=== PATIENT | male | born 1990 | race Caucasian/White ===

== ENCOUNTER 2018-05-22 17:00 | Emergency (ER) | payer OTHER ==
[2018-05-22] MEDS ORDERED: NA CHLORIDE 0.9% 1,000 ML ONE (17:20)
[2018-05-22 17:39] LABS: Absolute Lymphocytes (CBC) 0.6 K/uL (0.7-4.9); Absolute Monocytes 0.7 K/uL (0.1-1.3); Absolute Neutrophil 11.2 K/uL (1.8-8.0); Basophils % 0.2 % (0-1.3); Eosinophils % 0.4 % (0-4.4); Hematocrit 45.1 % (39.6-49.0); Lymphocytes % 4.5 % (15.3-44.8); MCH 32.6 pg (27.0-35.0); MCV 94.3 fL (80-100); MPV 7.4 fL (7.6-11.3); Monocytes % 5.6 % (3.3-12.3); RBC Red Blood Cell Count 4.78 M/uL (4.33-5.43)
[2018-05-22 17:54] LABS: Albumin 4.3 g/dL (3.4-5.0); Bilirubin Direct 0.1 mg/dL (0-0.2); Bilirubin Total 0.5 mg/dL (0.2-1.0); Potassium 3.7 mmol/L (3.5-5.1); Protein, Total 7.8 g/dL (6.4-8.2)
[2018-05-22 18:38] LABS: Urine White Blood Cell Casts OK
[2018-05-22 18:39] LABS: Blood Morphology Comment NOT SEEN (NOT SEEN); Platelet Estimate ADEQ
--- NOTE | 2018-05-22 18:43 | RAD REPORT ---
EXAM DESCRIPTION: CT - Abdomen Pelvis W Contrast - 05/22/2018 6:34 pm CLINICAL HISTORY: Abdominal pain, diarrhea, pain primarily right side COMPARISON: None. TECHNIQUE: Biphasic, helical CT imaging of the abdomen and pelvis was performed following 100 ml non -ionic IV contrast. Oral contrast was given. All CT scans are performed using dose optimization technique as appropriate and may include automated exposure control or mA/KV adjustment according to patient size. FINDINGS: No suspicious findings in the lung bases. The liver, spleen, and pancreas show no suspicious findings. Gallbladder and biliary tree are also wi thout suspicious finding. Symmetric renal function is seen with no hydronephrosis or suspicious renal mass. No dilated bowel loops or bowel wall thickening. No acute appendicitis findings. There is an appendic olith or old contrast within the lumen of a normal-sized appendix. No active GI process seen. No free air, free fluid or inflammatory stranding. No mass or bulky lymphadenopathy. A minimal fat filled u mbilical hernia is present. The urinary bladder is without significant finding. No adrenal abnormalit y. Prostate gland and seminal vesicles are normal. No suspicious bony findings. IMPRESSION: Contrast enhanced CT abdomen and pelvis showing no significant or suspicious finding.
--- NOTE | 2018-05-22 19:23 | ER ---
Nurse's Notes [facility] Name: King Vallejo Age: 28 yrs Sex: Male : 1990 Arrival Date: 05/22/2018 Time: 17:01 Bed 24 Private MD: Diagnosis: Diarrhea, unspecified;Unspecified abdominal pain;Viral gastroenteritis Presentation: 05/22 17:04 Presenting complaint: EMS states: pt sent from urgent care for complaint of feeling ill tl3 with dizziness and diarrhea. Flu and strep negative at urgent care, right sided abdominal pain with palpation. Transition of care: urgent care. Onset of symptoms was May 19, 2018. Risk Assessment: Do you want to hurt yourself or someone else? Patient reports no desire to harm self or others. Initial Sepsis Screen: Does the patient meet any 2 criteria? No. Patient's initial sepsis screen is negative. Does the patient have a suspected source of infection? No. Patient's initial sepsis screen is negative. Care prior to arrival: None. 17:04 Method Of Arrival: EMS: [facility] tl3 17:04 Acuity: CASIE 3 tl3 Triage Assessment: 17:07 General: Appears uncomfortable, slender, well groomed, well developed, well nourished, tl3 Behavior is calm, cooperative, appropriate for age. Pain: Complains of pain in right upper quadrant and right lower quadrant. EENT: No signs and/or symptoms were reported regarding the EENT system. Neuro: Level of Consciousness is awake, alert, obeys commands. Cardiovascular: Patient's skin is warm and dry. Respiratory: Airway is patent Respiratory effort is even, unlabored, Respiratory pattern is regular, symmetrical. GI: Abdomen is round Bowel sounds hyperactive in right upper quadrant and right lower quadrant Abdomen is tender to palpation in right upper quadrant and right lower quadrant. : No signs and/or symptoms were reported regarding the genitourinary system. Derm: No signs and/or symptoms reported regarding the dermatologic system. Musculoskeletal: No signs and/or symptoms reported regarding the musculoskeletal system. Historical: - Allergies: 17:07 No Known Allergies; tl3 - Home Meds: 17:07 None [Active]; tl3 - PMHx: 17:07 None; tl3 - PSHx: 17:07 None; tl3 - Immunization history:: Adult Immunizations up to date. - Social history:: Smoking status: unknown. - Ebola Screening: : No symptoms or risks identified at this time. Screenin:11 Abuse screen: Denies threats or abuse. Nutritional screening: No deficits noted. tl3 Tuberculosis screening: No symptoms or risk factors identified. Fall Risk None identified. Assessment: 17:11 Reassessment: No changes from previously documented assessment. tl3 18:24 Reassessment: Patient appears in no apparent distress at this time. No changes from tl3 previously documented assessment. Patient and/or family updated on plan of care and expected duration. Pain level reassessed. Patient is alert, oriented x 3, equal unlabored respirations, skin warm/dry/pink. pt being transported to CT. Vital Signs: 17:01 BP 132 / 93; Pulse 104; Resp 16; Temp 98.9(O); Pulse Ox 98% on R/A; iw 17:07 BP 131 / 84 Supine; Pulse 86; tl3 17:07 BP 129 / 90 Sitting; Pulse 109; tl3 17:07 BP 118 / 88 Standing; Pulse 115; tl3 18:24 BP 126 / 80; Pulse 98; Resp 18; Pulse Ox 100% on R/A; tl3 ED Course: 17:01 Patient arrived in ED. dm5 17:03 Reuben Ponce NP is PHCP. pm1 17:03 Virgil Velazco MD is Attending Physician. pm1 17:04 Elena Thomas, YASSINE is Primary Nurse. tl3 17:07 Triage completed. tl3 17:07 Arm band placed on right wrist. tl3 17:11 Patient has correct armband on for positive identification. Bed in low position. Call tl3 light in reach. Side rails up X 1. Pulse ox on. NIBP on. 17:11 No provider procedures requiring assistance completed. tl3 17:13 Flu and/or RSV swab sent to lab. Strep swab sent to lab. tm3 17:24 Initial lab(s) drawn, by me, sent to lab. Inserted saline lock: 20 gauge in right tl3 antecubital area, using aseptic technique. Blood collected. 18:[address] vm2 18:35 CT Abd/Pelvis - W/Contrast: IV contrast only In Process Unspecified. EDMS 18:37 CT completed. Patient tolerated procedure well. Patient moved back from CT. vm2 Administered Medications: 17:23 Drug: NS 0.9% 1000 ml Route: IV; Rate: 1000 ml; Site: right antecubital; Delivery: tl3 Primary tubing; 18:25 Follow up: IV Status: Completed infusion; IV Intake: 1000ml tl3 Intake: 18:25 IV: 1000ml; Total: 1000ml. tl3 Outcome: 19:23 Discharge ordered by . pm1 19:54 Patient left the ED. tl3 Signatures: Dispatcher [employer] EDMS Elver Andino tm3 May Rebolledo, YASSINE RN dm5 Dilma Arrieta RN RN iw Reuben Ponce, VAULT MAKER VAULT MAKER pm1 Heydi Aguilar 2 Elena Thomas RN RN tl3
--- NOTE | 2018-05-22 19:23 | EDPHYS ---
Physician Documentation [facility] Name: King Vallejo Age: 28 yrs Sex: Male : 1990 Arrival Date: 05/22/2018 Time: 17:01 Bed 24 Private MD: ED Physician Virgil Velazco HPI: 05/22 18:00 This 28 yrs old Male presents to ER via EMS with complaints of Abdominal Pain.pm1 18:00 The patient presents with abdominal pain in the epigastric area. Onset: The pm1 symptoms/episode began/occurred 3 day(s) ago. The symptoms do not radiate. Associated signs and symptoms: Pertinent positives: diarrhea, Pertinent negatives: nausea and vomiting, chest pain, dysuria, fever, shortness of breath. The symptoms are described as crampy. Modifying factors: The symptoms are alleviated by nothing, the symptoms are aggravated by nothing. Severity of pain: in the emergency department the pain has resolved. The patient has not recently seen a physician. Patient's roommate with diarrhea and abdominal pain for the past 3-4 days that just resolved. Patient presenting today with diarrhea 5-6 times per day for the past 3 days. Had abdominal cramping in the epigastric area that is currently resolved. Patient went to urgent care and had a flu and strep test performed. Patient was dizzy at the urgent care so EMS was asked to transfer the patient to the ER.. Historical: - Allergies: 17:07 No Known Allergies; tl3 - Home Meds: 17:07 None [Active]; tl3 - PMHx: 17:07 None; tl3 - PSHx: 17:07 None; tl3 - Immunization history:: Adult Immunizations up to date. - Social history:: Smoking status: unknown. - Ebola Screening: : No symptoms or risks identified at this time. ROS: 18:00 Constitutional: Negative for fever, chills, and weight loss, Eyes: Negative for injury, pm1 pain, redness, and discharge, ENT: Negative for injury, pain, and discharge, Neck: Negative for injury, pain, and swelling, Cardiovascular: Negative for chest pain, palpitations, and edema, Respiratory: Negative for shortness of breath, cough, wheezing, and pleuritic chest pain. 18:00 Back: Negative for injury and pain, : Negative for injury, bleeding, discharge, and swelling, MS/Extremity: Negative for injury and deformity, Skin: Negative for injury, rash, and discoloration. 18:00 Abdomen/GI: Positive for abdominal pain, diarrhea, Negative for nausea and vomiting, constipation. 18:00 Neuro: Positive for dizziness, Negative for headache, numbness, tingling, weakness. Exam: 18:00 Constitutional: This is a well developed, well nourished patient who is awake, alert, pm1 and in no acute distress. Head/Face: Normocephalic, atraumatic. Eyes: Pupils equal round and reactive to light, extra-ocular motions intact. Lids and lashes normal. Conjunctiva and sclera are non-icteric and not injected. Cornea within normal limits. Periorbital areas with no swelling, redness, or edema. ENT: Nares patent. No nasal discharge, no septal abnormalities noted. Tympanic membranes are normal and external auditory canals are clear. Oropharynx with no redness, swelling, or masses, exudates, or evidence of obstruction, uvula midline. Mucous membranes moist. Neck: Trachea midline, no thyromegaly or masses palpated, and no cervical lymphadenopathy. Supple, full range of motion without nuchal rigidity, or vertebral point tenderness. No Meningismus. Chest/axilla: Normal chest wall appearance and motion. Nontender with no deformity. No lesions are appreciated. Cardiovascular: Regular rate and rhythm with a normal S1 and S2. No gallops, murmurs, or rubs. Normal PMI, no JVD. No pulse deficits. Respiratory: Lungs have equal breath sounds bilaterally, clear to auscultation and percussion. No rales, rhonchi or wheezes noted. No increased work of breathing, no retractions or nasal flaring. 18:00 Back: No spinal tenderness. No costovertebral tenderness. Full range of motion. Skin: Warm, dry with normal turgor. Normal color with no rashes, no lesions, and no evidence of cellulitis. MS/ Extremity: Pulses equal, no cyanosis. Neurovascular intact. Full, normal range of motion. 18:00 Abdomen/GI: Inspection: abdomen appears normal, Bowel sounds: normal, Palpation: abdomen is soft and non-tender, in all quadrants, mass, is not appreciated, rebound tenderness, is not appreciated, Indicators: McBurney's point is not tender, Hull's sign is negative, Rovsing's sign is negative, Obturator sign is negative, Psoas sign is negative. 18:00 Neuro: Orientation: is normal, Motor: is normal, moves all fours, Gait: is steady, at a normal pace, without difficulty. Vital Signs: 17:01 BP 132 / 93; Pulse 104; Resp 16; Temp 98.9(O); Pulse Ox 98% on R/A; iw 17:07 BP 131 / 84 Supine; Pulse 86; tl3 17:07 BP 129 / 90 Sitting; Pulse 109; tl3 17:07 BP 118 / 88 Standing; Pulse 115; tl3 18:24 BP 126 / 80; Pulse 98; Resp 18; Pulse Ox 100% on R/A; tl3 MDM: 17:03 Patient medically screened. pm1 19:20 Differential diagnosis: appendicitis, cholecystitis, Cholelithiasis, gastritis, pm1 Hepatitis, non-specific abd pain, pancreatitis, Viral gastroenteritis. 19:22 Data reviewed: vital signs. Data interpreted: Pulse oximetry: on room air is 100 %. pm1 Interpretation: normal. Counseling: I had a detailed discussion with the patient and/or guardian regarding: the historical points, exam findings, and any diagnostic results supporting the discharge/admit diagnosis, lab results, radiology results, the need for outpatient follow up, to return to the emergency department if symptoms worsen or persist or if there are any questions or concerns that arise at home. 05/22 17:10 Order name: Strep; Complete Time: 18:10 pm1 05/22 17:10 Order name: Flu; Complete Time: 18:10 pm1 05/22 17:10 Order name: Basic Metabolic Panel; Complete Time: 18:10 pm1 05/22 17:10 Order name: CBC with Diff; Complete Time: 18:44 pm1 05/22 17:10 Order name: Creatinine for Radiology; Complete Time: 18:10 pm1 05/22 17:10 Order name: Hepatic Function; Complete Time: 18:10 pm1 05/22 17:10 Order name: Lipase; Complete Time: 18:10 pm1 05/22 17:10 Order name: IV Saline Lock; Complete Time: 17:23 pm1 05/22 17:10 Order name: Labs collected and sent; Complete Time: 17:24 pm1 10/23 17:10 Order name: Orthostatic Blood Pressure; Complete Time: 17:12 pm1 05/22 17:51 Order name: Throat Culture EDMS 05/22 18:12 Order name: CT Abd/Pelvis - W/Contrast: IV contrast only; Complete Time: 18:44 pm1 05/22 18:38 Order name: CBC Smear Scan; Complete Time: 18:44 EDMS Administered Medications: 17:23 Drug: NS 0.9% 1000 ml Route: IV; Rate: 1000 ml; Site: right antecubital; Delivery: tl3 Primary tubing; 18:25 Follow up: IV Status: Completed infusion; IV Intake: 1000ml tl3 Disposition: 05/22/18 19:23 Discharged to Home. Impression: Diarrhea, unspecified, Unspecified abdominal pain, Viral gastroenteritis . - Condition is Stable. - Discharge Instructions: Abdominal Pain, Adult, Food Choices to Help Relieve Diarrhea, Adult, Diarrhea, Adult, Viral Gastroenteritis, Adult. - Prescriptions for Bentyl 20 mg Oral Tablet - take 1 tablet by ORAL route every 6 hours As needed; 20 tablet. - Medication Reconciliation Form, Thank You Letter, Antibiotic Education, Work release form form. - Follow up: Emergency Department; When: As needed; Reason: Worsening of condition. Follow up: Private Physician; When: 2 - 3 days; Reason: Recheck today's complaints, Continuance of care, Re-evaluation by your physician. - Problem is new. - Symptoms have improved. Addendum: 05/24/2018 02:03 Co-signature as Attending Physician, Virgil Velazco MD Available for consultation at p s1 all times. . Signatures: Dispatcher [employer] EDHI Reuben Ponce, NOODLE MAKER NOODLE MAKER pm1 Virgil Velazco MD MD ps1 Elena Thomas RN RN tl3 Corrections: (The following items were deleted from the chart) 05/22 19:54 19:23 05/22/2018 19:23 Discharged to Home. Impression: Diarrhea, unspecified; tl3 Unspecified abdominal pain; Viral gastroenteritis . Condition is Stable. Forms are Medication Reconciliation Form, Thank You Letter, Antibiotic Education, Prescription Opioid Use. Follow up: Emergency Department; When: As needed; Reason: Worsening of condition. Follow up: Private Physician; When: 2 - 3 days; Reason: Recheck today's complaints, Continuance of care, Re-evaluation by your physician. Problem is new. Symptoms have improved. pm1
== END 2018-05-22 19:54 | disposition home or self-care (01) ==
LOC: ER 17:00
DX: A08.4 Viral intestinal infection, unspecified (principal); R19.7 Diarrhea, unspecified
CPT/HCPCS: 36415; 74177; 80048; 80076; 83690; 85025; 87070; 87081; 87804; J7030; Q9967

== ENCOUNTER 2019-09-25 04:43 | Observation (INO) | payer OTHER ==
--- OUTSIDE RECORDS SUMMARY | 2019-09-25 04:45 | XMS REPORT ---
:1990 [facility] Address [address] [place] [address] Dr. Ling [address] [place] [id number] Care Team Providers Name Role Phone Unavailable Unavailable Unavailable Problems This patient has no known problems. Allergies, Adverse Reactions, Alerts This patient has no known allergies or adverse reactions. Medications This patient has no known medications.
[2019-09-25] MEDS ORDERED: NA CHLORIDE 0.9% 500 ML ONE (05:43)
[2019-09-25] MEDS ORDERED: ONDANSETRON 4 MG/2 ML VIAL ONE ×4 (05:43→13:36)
[2019-09-25] MEDS ORDERED: MORPHINE 4 MG/ML SYR ONE ×2 (05:43→07:56)
[2019-09-25 05:53] LABS: Absolute Lymphocytes (CBC) 0.9 K/uL (0.7-4.9); Basophils % 0.2 % (0-1.3); Hematocrit 44.1 % (39.6-49.0); Lymphocytes % 5.8 % (15.3-44.8); MPV 8.1 fL (7.6-11.3); RBC Red Blood Cell Count 4.71 M/uL (4.33-5.43)
[2019-09-25 06:13] LABS: Albumin 4.1 g/dL (3.4-5.0); Bilirubin Direct 0.2 mg/dL (0-0.2); Bilirubin Total 0.5 mg/dL (0.2-1.0); Potassium 3.9 mmol/L (3.5-5.1); Protein, Total 7.5 g/dL (6.4-8.2)
--- NOTE | 2019-09-25 06:50 | EDPHYS ---
Physician Documentation [facility] Name: King Vallejo Age: 29 yrs Sex: Male : 1990 Arrival Date: 09/25/2019 Time: 04:44 Bed 8 Private MD: ED Physician Jose Givens HPI: 09/25 05:16 This 29 yrs old Male presents to ER via Ambulatory with complaints of abd rn pain. 05:16 The patient presents with abdominal pain right lower quadrant. Onset: The rn symptoms/episode began/occurred last night. The symptoms do not radiate. Associated signs and symptoms: Pertinent positives: nausea and vomiting, anorexia, diarrhea, Pertinent negatives: fever, hematuria, testicular pain. Modifying factors: The symptoms are alleviated by nothing, the symptoms are aggravated by pressure, touching the area. Severity of pain: At its worst the pain was moderate in the emergency department the pain is unchanged. The patient has not experienced similar symptoms in the past. The patient has not recently seen a physician. 05:16 The symptoms are described as sharp, stabbing. rn Historical: - Allergies: 04:57 No Known Allergies; fc - Home Meds: 04:57 None [Active]; fc - PMHx: 04:57 None; fc - PSHx: 04:57 None; fc - Immunization history:: Last tetanus immunization: up to date Flu vaccine is not up to date. - Coronavirus screen:: The patient has NOT traveled to [place] in the past 14 days. Proceed with normal triage process as indicated. The patient has NOT had contact with known/suspected case of Coronavirus? Proceed with normal triage procedures. - Social history:: Smoking status: Patient denies any tobacco usage or history of. Patient uses alcohol, occasionally. Patient/guardian denies using street drugs. - Family history:: not pertinent. - Ebola Screening: : Patient negative for fever greater than or equal to 101.5 degrees Fahrenheit, and additional compatible Ebola Virus Disease symptoms Patient denies exposure to infectious person Patient denies travel to an Ebola-affected area in the 21 days before illness onset. - Hospitalizations: : No recent hospitalization is reported. ROS: 05:17 Constitutional: Negative for fever, chills, and weight loss, Eyes: Negative for injury, rn pain, redness, and discharge, Neck: Negative for injury, pain, and swelling, Cardiovascular: Negative for chest pain, palpitations, and edema, Respiratory: Negative for shortness of breath, cough, wheezing, and pleuritic chest pain, Abdomen/GI: + abd pain with nausea/vomiting/diarrhea Back: Negative for injury and pain, : Negative for injury, bleeding, discharge, and swelling, MS/Extremity: Negative for injury and deformity, Skin: Negative for injury, rash, and discoloration, Neuro: Negative for headache, weakness, numbness, tingling, and seizure. Exam: 05:17 Constitutional: This is a well developed, well nourished patient who is awake, alert, rn appears uncomfortable, walking to room holding right lower abdomen. Head/Face: Normocephalic, atraumatic. Eyes: Pupils equal round and reactive to light, extra-ocular motions intact. Lids and lashes normal. Conjunctiva and sclera are non-icteric and not injected. Cornea within normal limits. Periorbital areas with no swelling, redness, or edema. ENT: MMM Cardiovascular: Regular rate and rhythm. No pulse deficits. Respiratory: No increased work of breathing, no retractions or nasal flaring. Abdomen/GI: soft, + RLQ tenderness with guarding, no rebound Skin: Warm, dry with normal turgor. Normal color with no rashes, no lesions, and no evidence of cellulitis. MS/ Extremity: Pulses equal, no cyanosis. Neurovascular intact. Full, normal range of motion. Equal circumference. Neuro: Awake and alert, GCS 15, oriented to person, place, time, and situation. Cranial nerves II-XII grossly intact. Motor strength 5/5 in all extremities. Sensory grossly intact. Cerebellar exam normal. Normal gait. Vital Signs: 04:45 BP 135 / 76; Pulse 85; Resp 18; Temp 97.9(O); Pulse Ox 99% on R/A; Weight 109.77 kg fc (R); Height 6 ft. 0 in. (182.88 cm) (R); Pain 8/10; 06:15 BP 132 / 71; Pulse 88; Resp 16; Pulse Ox 98% on R/A; Pain 5/10; jb4 07:00 BP 120 / 76; Pulse 89; Resp 16; Pulse Ox 99% on R/A; Pain 7/10; jb4 08:00 BP 122 / 78; Pulse 78; Resp 18; Pulse Ox 96% ; Pain 8/10; ll1 09:50 BP 121 / 85; Pulse 73; Resp 15; Temp 98.1; Pulse Ox 100% on R/A; hb 04:45 Body Mass Index 32.82 (109.77 kg, 182.88 cm) fc MDM: 04:45 Patient medically screened. rn 06:42 Differential diagnosis: appendicitis, diverticulitis, gastritis, non-specific abd pain, rn pancreatitis, Ureterolithiasis. Data reviewed: vital signs, nurses notes, lab test result(s), radiologic studies, CT scan, and as a result, I will admit patient. Counseling: I had a detailed discussion with the patient and/or guardian regarding: the historical points, exam findings, and any diagnostic results supporting the discharge/admit diagnosis, lab results, radiology results, the need for further work-up and treatment in the hospital. Admission orders: after a detailed discussion of the patient's condition and case, the admit orders are written by me. Special discussion:. ED course: Pt with acute appendicitis, no perforation, no abscess, will admit for surgery.. 06:47 ED course: called Dr. Herzog twice, no answer, will admit to [facility] as he is on rn call in a few minutes. . 09/25 05:01 Order name: Basic Metabolic Panel; Complete Time: 06:17 rn 09/25 05:01 Order name: CBC with Diff rn 09/25 05:01 Order name: Creatinine for Radiology; Complete Time: 06:23 rn 09/25 05:01 Order name: Hepatic Function; Complete Time: 06:17 rn 09/25 05:01 Order name: Lipase; Complete Time: 06:17 rn 09/25 06:54 Order name: Manual Differential EDMS 09/25 05:07 Order name: CT Abd/Pelvis - IV Contrast Only rn 09/25 05:01 Order name: IV Saline Lock; Complete Time: 05:54 rn 09/25 05:01 Order name: Labs collected and sent; Complete Time: 05:54 rn 09/25 06:49 Order name: NPO; Complete Time: 06:51 rn Administered Medications: 05:40 Drug: NS 0.9% 500 ml Route: IV; Rate: bolus; Site: right antecubital; sg 06:20 Follow up: Response: No adverse reaction; IV Status: Completed infusion; IV Intake: jb4 500ml 05:50 Drug: Zofran 4 mg Route: IVP; Site: right antecubital; sg 06:15 Follow up: Response: No adverse reaction; Nausea is decreased jb4 05:52 Drug: morphine 4 mg Route: IVP; Site: right antecubital; sg 06:15 Follow up: Response: No adverse reaction; Pain is decreased; RASS: Alert and Calm (0) jb4 07:06 Drug: Rocephin - (cefTRIAXone) 1 grams {Note: Administered IV push per Pharmacy jb4 protocol.} Route: IVPB; Infused Over: 30 mins; Site: right antecubital; 07:10 Follow up: Response: No adverse reaction; IV Status: Completed infusion; IV Intake: [id number] 07:10 Drug: Flagyl 500 mg Volume: 100 ml; Route: IVPB; Rate: 200 ml/hr; Infused Over: 30 jb4 mins; Site: right antecubital; 07:43 Follow up: Response: No adverse reaction; IV Status: Completed infusion ll1 07:58 Drug: Zofran 4 mg Route: IVP; Site: right antecubital; ll1 08:00 Drug: morphine 4 mg Route: IVP; Site: right antecubital; ll1 Disposition: 09/25/19 06:49 Hospitalization ordered by Krishna [facility] for Inpatient Admission. Preliminary diagnosis is Acute appendicitis. - Bed requested for Telemetry/MedSurg (Inpatient). - Status is Inpatient Admission. hb - Condition is Stable. - Problem is new. - Symptoms have improved. Signatures: Dispatcher [employer] EDPA Antonia Valdez RN RN Axle Owens RN RN Jessica Cardona RN RN fc Nieto, Roman, MD MD rn Baxter, Heather, RN RN Krishna Webber RN RN jb Raji Porras RN RN ll1 Corrections: (The following items were deleted from the chart) 09:12 06:49 Hospitalization Ordered by Krishna Hill MD for Inpatient Admission. Preliminary dw diagnosis is Acute appendicitis. Bed requested for Telemetry/MedSurg (Inpatient). Status is Inpatient Admission. Condition is Stable. Problem is new. Symptoms have improved. rn 10:05 09:12 09/25/2019 06:49 Hospitalization Ordered by Krishna Hill MD for Inpatient Admission. Preliminary diagnosis is Acute appendicitis. Bed requested for Telemetry/MedSurg (Inpatient). Status is Inpatient Admission. Condition is Stable. Problem is new. Symptoms have improved. dw
--- NOTE | 2019-09-25 06:50 | ER ---
Nurse's Notes [facility] Name: King Vallejo Age: 29 yrs Sex: Male : 1990 Arrival Date: 09/25/2019 Time: 04:44 Bed 8 Private MD: Diagnosis: Acute appendicitis Presentation: 09/25 04:45 Presenting complaint: Patient states: that he is having right lower abd pain and right fc lower back ache. Positive nausea, vomiting and diarrhea. Transition of care: patient was not received from another setting of care. Onset of symptoms was September 24, 2019 at 23:00. Risk Assessment: Do you want to hurt yourself or someone else? Patient reports no desire to harm self or others. Initial Sepsis Screen: Does the patient meet any 2 criteria? No. Patient's initial sepsis screen is negative. Does the patient have a suspected source of infection? No. Patient's initial sepsis screen is negative. Care prior to arrival: None. 04:45 Method Of Arrival: Ambulatory 04:45 Acuity: CASIE 3 fc Historical: - Allergies: 04:57 No Known Allergies; fc - Home Meds: 04:57 None [Active]; fc - PMHx: 04:57 None; fc - PSHx: 04:57 None; fc - Immunization history:: Last tetanus immunization: up to date Flu vaccine is not up to date. - Coronavirus screen:: The patient has NOT traveled to [place] in the past 14 days. Proceed with normal triage process as indicated. The patient has NOT had contact with known/suspected case of Coronavirus? Proceed with normal triage procedures. - Social history:: Smoking status: Patient denies any tobacco usage or history of. Patient uses alcohol, occasionally. Patient/guardian denies using street drugs. - Family history:: not pertinent. - Ebola Screening: : Patient negative for fever greater than or equal to 101.5 degrees Fahrenheit, and additional compatible Ebola Virus Disease symptoms Patient denies exposure to infectious person Patient denies travel to an Ebola-affected area in the 21 days before illness onset. - Hospitalizations: : No recent hospitalization is reported. Screenin:45 Abuse screen: Denies threats or abuse. Nutritional screening: No deficits noted. fc Tuberculosis screening: No symptoms or risk factors identified. Fall Risk None identified. Assessment: 04:50 General: Appears in no apparent distress. uncomfortable, Behavior is calm, cooperative, jb4 appropriate for age. Pain: Complains of pain in abdomen Pain does not radiate. Pain at worst was 10 out of 10 on a pain scale. Quality of pain is described as burning, Is continuous. Neuro: Level of Consciousness is awake, alert, obeys commands, Oriented to person, place, time, situation. Cardiovascular: Patient's skin is warm and dry. Respiratory: Airway is patent Respiratory effort is even, unlabored, Respiratory pattern is regular, symmetrical. GI: Abdomen is flat, non-distended, Reports lower abdominal pain, upper abdominal pain. : No signs and/or symptoms were reported regarding the genitourinary system. EENT: No signs and/or symptoms were reported regarding the EENT system. Derm: Skin is intact, Skin is pink, warm \T\ dry. Musculoskeletal: Circulation, motion, and sensation intact. Range of motion: intact in all extremities. 05:40 Reassessment: Patient appears in no apparent distress at this time. Patient and/or family updated on plan of care and expected duration. Pain level reassessed. Patient is alert, oriented x 3, equal unlabored respirations, skin warm/dry/pink. pt awaiting CT scan, pt to provide a urine specimen, IV fluids have been initiated as ordered, pt medicated for pain and nausea, will continue to monitor. 06:45 Reassessment: Patient appears in no apparent distress at this time. Patient and/or jb4 family updated on plan of care and expected duration. Pain level reassessed. Patient is alert, oriented x 3, equal unlabored respirations, skin warm/dry/pink. 07:55 Reassessment: Patient and/or family updated on plan of care and expected duration. Pain ll1 level reassessed. Patient is alert, oriented x 3, equal unlabored respirations, skin warm/dry/pink. Flagyl completed, IV SL. Gait steady to restroom. Patient states feeling better. 08:35 Reassessment: Patient appears in no apparent distress at this time. Patient and/or family updated on plan of care and expected duration. Pain level reassessed. Patient is alert, oriented x 3, equal unlabored respirations, skin warm/dry/pink. 09:18 Reassessment: Attempted to call report, per YESSENIA Hope RN, receiving nurse unavailable at this time. 10:03 Reassessment: Bedside report to RACHEL RN, pt to OR. Report called to 2nd floor receiving nurse Natacha METZGER. Vital Signs: 04:45 BP 135 / 76; Pulse 85; Resp 18; Temp 97.9(O); Pulse Ox 99% on R/A; Weight 109.77 kg fc (R); Height 6 ft. 0 in. (182.88 cm) (R); Pain 8/10; 06:15 BP 132 / 71; Pulse 88; Resp 16; Pulse Ox 98% on R/A; Pain 5/10; jb4 07:00 BP 120 / 76; Pulse 89; Resp 16; Pulse Ox 99% on R/A; Pain 7/10; jb4 08:00 BP 122 / 78; Pulse 78; Resp 18; Pulse Ox 96% ; Pain 8/10; ll1 09:50 BP 121 / 85; Pulse 73; Resp 15; Temp 98.1; Pulse Ox 100% on R/A; hb 04:45 Body Mass Index 32.82 (109.77 kg, 182.88 cm) ED Course: 04:44 Patient arrived in ED. ds1 04:45 Jose Givens MD is Attending Physician. rn 04:45 Arm band placed on Patient placed in an exam room, on a stretcher. 04:45 Patient has correct armband on for positive identification. Bed in low position. Call light in reach. Pulse ox on. NIBP on. 04:45 No provider procedures requiring assistance completed. fc 04:54 Triage completed. 05:35 Krishna Webber, RN is Primary Nurse. jb4 06:26 CT Abd/Pelvis - IV Contrast Only In Process Unspecified. EDMS 06:48 Krishna Hill MD is Hospitalizing Provider. rn 10:04 Patient admitted, IV remains in place. Administered Medications: 05:40 Drug: NS 0.9% 500 ml Route: IV; Rate: bolus; Site: right antecubital; sg 06:20 Follow up: Response: No adverse reaction; IV Status: Completed infusion; IV Intake: jb4 500ml 05:50 Drug: Zofran 4 mg Route: IVP; Site: right antecubital; sg 06:15 Follow up: Response: No adverse reaction; Nausea is decreased jb4 05:52 Drug: morphine 4 mg Route: IVP; Site: right antecubital; sg 06:15 Follow up: Response: No adverse reaction; Pain is decreased; RASS: Alert and Calm (0) jb4 07:06 Drug: Rocephin - (cefTRIAXone) 1 grams {Note: Administered IV push per Pharmacy jb4 protocol.} Route: IVPB; Infused Over: 30 mins; Site: right antecubital; 07:10 Follow up: Response: No adverse reaction; IV Status: Completed infusion; IV Intake: [id number] 07:10 Drug: Flagyl 500 mg Volume: 100 ml; Route: IVPB; Rate: 200 ml/hr; Infused Over: 30 jb4 mins; Site: right antecubital; 07:43 Follow up: Response: No adverse reaction; IV Status: Completed infusion ll1 07:58 Drug: Zofran 4 mg Route: IVP; Site: right antecubital; ll1 08:00 Drug: morphine 4 mg Route: IVP; Site: right antecubital; ll1 Intake: 06:20 IV: 500ml; Total: 500ml. jb4 07:10 IV: 10ml; Total: 510ml. jb4 Outcome: 06:49 Decision to Hospitalize by Provider. rn 10:04 Admitted to Med/surg accompanied by nurse, via stretcher. 10:04 Condition: stable 10:04 Instructed on the need for admit, Demonstrated understanding of instructions. 10:05 Patient left the ED. Signatures: Dispatcher [employer] EDMS Axel Owens RN RN sg Chretien, Felicia, RN RN Raven Juarez ds1 Jose Givens MD MD rn Baxter, Heather, RN RN hb Bryson, James, RN RN jb4 Raji Porras RN RN ll1
[2019-09-25 06:53] LABS: Blood Morphology Comment NOT SEEN (NOT SEEN); Platelet Estimate ADEQ
[2019-09-25] MEDS ORDERED: CEFTRIAXONE/SWI 1gm 1 GM/10 ML SYR ONE (07:04)
[2019-09-25] MEDS ORDERED: METRONIDAZOLE 500mg IVPB 500 MG/100 ML BAG IV ONE (07:05)
[2019-09-25] MEDS ORDERED: Ringers Lactate 1,000 ML IV ONE ×2 (10:19→12:36)
[2019-09-25] MEDS ORDERED: FENTANYL CITR 100 MCG/2 ML ONE (10:22)
--- NOTE | 2019-09-25 10:28 | RAD REPORT ---
EXAM DESCRIPTION: CT - Abdomen Pelvis W Contrast - 09/25/2019 6:50 am ADDENDUM #1 THIS REPORT CONTAINS FINDINGS THAT MAY BE CRITICAL TO PATIENT CARE: The findings were verbally discussed via telephone conference with Dr. Jose Givens by Dr. Joselin Akins on 09/25 6:41 AM STERILE INSTRUMENT TECHNICIAN .The results were acknowledged and understood. Electronically signed by: Dianne Akins MD 09/25/2019 6:42 AM STERILE INSTRUMENT TECHNICIAN End of Addendum EXAM DESCRIPTION: CT Abdomen and Pelvis With Intravenous Contrast CLINICAL HISTORY: The patient is 29 years old and is Male; RLQ abd pain, rule out appy TECHNIQUE: Axial computed tomography images of the abdomen and pelvis with intravenous contrast. S agittal and coronal reformatted images were created and reviewed. This CT exam was performed using one or more of the following dose reduction techniques: automated exposure control, adjustment of t he mA and/or kV according to patient size, and/or use of iterative reconstruction technique. COMPARISON: No relevant prior studies available. FINDINGS: LUNG BASES: Unremarkable. No mass. No consolidation. ABDOMEN: LIVER: Unremarkable. No mass. GALLBLADDER AND BILE DUCTS: The gallbladder is physiologically distended. PANCREAS: No ductal dilation. No mass. SPLEEN: Unremarkable. ADRENALS: Unremarkable. No mass. KIDNEYS AND URETERS: A right intrarenal calcification is present. The kidneys enhance symmetrica lly. No obstructing renal or ureteral calculus is seen. STOMACH AND BOWEL: The stomach is decompressed. The small bowel is normal in caliber. A moderate amount stool is present throughout colon. There is no mucosal thickening or evidence of bowel obstru ction. PELVIS: APPENDIX: The appendix is dilated measuring up to 1.4 cm. The appendix is fluid-filled. Mild enh ancement of the appendiceal wall is noted. Surrounding inflammatory stranding is present. BLADDER: Unremarkable. No mass. REPRODUCTIVE: Unremarkable as visualized. ABDOMEN and PELVIS: INTRAPERITONEAL SPACE: Unremarkable. No free air. No significant fluid collection. BONES/JOINTS: No acute fracture. SOFT TISSUES: The soft tissues are normal. VASCULATURE: Unremarkable. No abdominal aortic aneurysm. LYMPH NODES: Unremarkable. No enlarged lymph nodes. IMPRESSION: Findings consistent with acute appendicitis. No evidence of periappendiceal abscess. Electronically signed by: Dianne Akins MD 09/25/2019 6:38 AM STERILE INSTRUMENT TECHNICIAN ADDENDUM #1 THIS REPORT CONTAINS FINDINGS THAT MAY BE CRITICAL TO PATIENT CARE: The findings were verbally discussed via telephone conference with Dr. Jose Givens by Dr. Joselin Akins on 09/25 6:41 AM STERILE INSTRUMENT TECHNICIAN .The results were acknowledged and understood. Electronically signed by: Dianne Akins MD 09/25/2019 6:42 AM STERILE INSTRUMENT TECHNICIAN End of Addendum ADDENDUM #1 THIS REPORT CONTAINS FINDINGS THAT MAY BE CRITICAL TO PATIENT CARE: The findings were verbally discussed via telephone conference with Dr. Jose Givens by Dr. Joselin Akins on 09/25 6:41 AM STERILE INSTRUMENT TECHNICIAN .The results were acknowledged and understood. Electronically signed by: Dianne Akins MD 09/25/2019 6:42 AM STERILE INSTRUMENT TECHNICIAN End of Addendum EXAM: CT Abdomen and Pelvis With Intravenous Contrast CLINICAL HISTORY: The patient is 29 years old and is Male; RLQ abd pain, rule out appy TECHNIQUE: Axial computed tomography images of the abdomen and pelvis with intravenous contrast. S agittal and coronal reformatted images were created and reviewed. This CT exam was performed using one or more of the following dose reduction techniques: automated exposure control, adjustment of t he mA and/or kV according to patient size, and/or use of iterative reconstruction technique. COMPARISON: No relevant prior studies available. FINDINGS: LUNG BASES: Unremarkable. No mass. No consolidation. ABDOMEN: LIVER: Unremarkable. No mass. GALLBLADDER AND BILE DUCTS: The gallbladder is physiologically distended. PANCREAS: No ductal dilation. No mass. SPLEEN: Unremarkable. ADRENALS: Unremarkable. No mass. KIDNEYS AND URETERS: A right intrarenal calcification is present. The kidneys enhance symmetrica lly. No obstructing renal or ureteral calculus is seen. STOMACH AND BOWEL: The stomach is decompressed. The small bowel is normal in caliber. A moderate amount stool is present throughout colon. There is no mucosal thickening or evidence of bowel obstru ction. PELVIS: APPENDIX: The appendix is dilated measuring up to 1.4 cm. The appendix is fluid-filled. Mild enh ancement of the appendiceal wall is noted. Surrounding inflammatory stranding is present. BLADDER: Unremarkable. No mass. REPRODUCTIVE: Unremarkable as visualized. ABDOMEN and PELVIS: INTRAPERITONEAL SPACE: Unremarkable. No free air. No significant fluid collection. BONES/JOINTS: No acute fracture. SOFT TISSUES: The soft tissues are normal. VASCULATURE: Unremarkable. No abdominal aortic aneurysm. LYMPH NODES: Unremarkable. No enlarged lymph nodes. IMPRESSION: Findings consistent with acute appendicitis. No evidence of periappendiceal abscess. Electronically signed by: Dianne Akins MD 09/25/2019 6:38 AM STERILE INSTRUMENT TECHNICIAN Due to temporary technical issues with the PACS/Fluency reporting system, reports are being signed by the in house radiologist as a courtesy to ensure prompt reporting. The interpreting radiologist is f ully responsible for the content of the report.
[2019-09-25] MEDS ORDERED: propofoL 200 MG/20 ML VIAL IV ONE (10:33)
[2019-09-25] MEDS ORDERED: LIDOCAINE 2% MPF 5 ML VIAL ONE (10:34)
[2019-09-25] MEDS ORDERED: MIDAZOLAM HCL 2 MG/2 ML INJ ONE (10:34)
[2019-09-25] MEDS ORDERED: FENTANYL CITR 250 MCG/5 ML ONE (10:35)
[2019-09-25] MEDS ORDERED: ROCURONIUM 50 MG/5 ML VIAL IV ONE (10:36)
[2019-09-25] MEDS ORDERED: GLYCOPYRROLATE 0.2 MG/ML SYR ONE (10:37)
--- NOTE | 2019-09-25 11:55 | P.HP ---
Date of Service: 09/25/19 PC: This 29-year-old male presents emergency room with severe right lower quadrant abdominal pain for diagnosis and treatment. HPC: Patient has had abdominal pain since 11 o'clock last night. Pain intensified and is now localized to the right lower quadrant. Hurts when he tries to walk or cough. PMH: Negative PSHx: Negative SOC: No known allergies SYS REVIEW: No cough, wheeze, shortness of breath. No chest pain or palpitations. Denies any urinary complaints O/E awake alert ill-looking young man, vital signs are stable HEENT: Not jaundiced Chest: Chest movement equal bilaterally ABD: Tenderness with guarding and rebound in the right lower quadrant LOCO: Intact DATA: CT scan demonstrates acute appendicitis IMPRESSION: This patient has an acute abdomen. Clinical exam and CT scan supports acute appendicitis PLAN: I will take him to the operating room for laparoscopic possible open appendectomy. The risks of this procedure have been discussed. The possibility of bleeding, infection, abscess formation, and injury to blood vessels and surrounding structures was explained. The possible need for an open and/or further surgeries and procedures was discussed. He understands and wants to proceed.
[2019-09-25] MEDS ORDERED: NEOSTIGMINE 1 MG/ML -5 ML ONE (12:18)
[2019-09-25] MEDS ORDERED: MORPHINE 4 MG/ML SYR IV PRN ×2 (13:12→13:26)
[2019-09-25] MEDS ORDERED: ONDANSETRON 4 MG/2 ML VIAL IV PRN (13:12)
--- NOTE | 2019-09-25 13:14 | P.OP ---
Preoperative diagnosis: Acute abdomen Postoperative diagnosis: Acute appendicitis Primary procedure: Laparoscopic appendectomy Anesthesia: General Estimated blood loss: Less than 10 cc Specimen: 1 appendix Operative Technique: The patient was brought to the operating room, placed supine on the table. After the induction of adequate general endotracheal anesthesia, the area of the abdomen was prepped with a DuraPrep solution, and she was draped in the usual aseptic manner. A subumbilical incision was made. This was brought down through the skin and subcutaneous tissue. The Visiport was cavity and created pneumoperitoneum to approximately 12 mm of mercury. Under direct vision a 5 mm trocar was placed in the lower midline and another 5 mm in the right upper quadrant. The patient was then positioned in Trendelenburg and rolled to the left side. We were able to visualize the right lower quadrant. We could see an acutely inflamed appendix laying at the sidewall of the abdomen just above the true pelvis. The appendix was grasped with a grasper and elevated. The appendix was then gently dissected from the surrounding structures. The junction of the appendix with the with the cecum was identified. An opening was made in the mesentery of the appendix. The 10 mm trocar was now converted to a 12 with the camera moved to the right upper port with a 5 mm view. The linear Stapler was introduced into the peritoneal cavity. It was placed across the base of the appendix and fired. A vascular reload was then placed into the Stapler. The mesentery of the appendix was then taken down. The appendix having been was placed into an Endo-Catch, brought out through the umbilical port site. Attention was turned back towards the right lower quadrant. The area was gently irrigated with the saline solution. The effluent was aspirated. 0.25% Marcaine was aerosolize into the right lower quadrant. Attention was turned towards the umbilical trocar. Using the endo-close absorbable sutures were placed to close the defect. The patient was now returned to the neutral position on the OR table. The pneumoperitoneum was collapsed, the umbilical sutures tied, and vangie applied to the skin. At the end of the procedure the patient was in stable condition and sent to the recovery room. Needle sponge and instrument count were correct. 1 specimen was sent for histopathology. Sterile dressings had been applied. Complications: None Transferred to: Recovery Room Condition: Good
[2019-09-25] MEDS ORDERED: HYDROCODONE/APAP 7.5/325 MG TAB PO PRN (13:26)
[2019-09-25 13:45] VITALS: O2SAT 99
[2019-09-25] MEDS: D5 0.45 NS 1,000 ML IV SCH ×2 (14:42→23:51)
[2019-09-25] MEDS: METRONIDAZOLE 500mg IVPB 500 MG/100 ML BAG IV SCH ×3 (14:43→23:52)
[2019-09-25 15:24] VITALS: BMI 32.8
[2019-09-25] MEDS: CEFTRIAXONE/SWI 1gm 1 GM/10 ML SYR IV SCH (19:57)
[2019-09-26] MEDS: D5 0.45 NS 1,000 ML IV SCH (05:12)
[2019-09-26 05:38] LABS: Absolute Lymphocytes (CBC) 1.6 K/uL (0.7-4.9); Basophils % 0.3 % (0-1.3); Hematocrit 42.2 % (39.6-49.0); Lymphocytes % 19.4 % (15.3-44.8); MPV 8.1 fL (7.6-11.3); RBC Red Blood Cell Count 4.47 M/uL (4.33-5.43)
[2019-09-26 06:04] LABS: Potassium 3.9 mmol/L (3.5-5.1)
[2019-09-26] MEDS: METRONIDAZOLE 500mg IVPB 500 MG/100 ML BAG IV SCH (08:40)
[2019-09-26] MEDS: CEFTRIAXONE/SWI 1gm 1 GM/10 ML SYR IV SCH (08:42)
[2019-09-26 13:58] VITALS: BP 124/73; TEMP 97.4
== END 2019-09-26 14:24 | disposition home or self-care (01) ==
LOC: ER 04:43 → ERHOLD 07:01 → INTOOBSV 07:01 → 2ND 11:44
PROVIDERS: ADMIT Surgery; ATTEND Surgery
PROC: 0DTJ4ZZ Resection of Appendix, Percutaneous Endoscopic Approach (ICD-10-PCS; principal; 2019-09-25 11:00)
DX: K35.80 Unspecified acute appendicitis (principal)
CPT/HCPCS: 44970; 96365; 96361; 85025 ×2; 80048 ×2; 36415 ×2; 80076; 88304; 83690; 74177; 96375; 99285; Q9967; J2704; J2250; J3010 ×2; J2710; J0696 ×3; J7799 ×3; J7120 ×2; J7040; J2405 ×4; G0378 ×3